=== PATIENT | male | born 1955 | race Caucasian/White ===

== ENCOUNTER → 2017-04-06 | Outpatient (CLI) | payer MEDICARE, OTHER ==
[2017-04-06 14:38] LABS: Basophils % (A) 1 %; CH 29.3; CHCM 32.8; Eosinophils # (A) 0.2 k/uL (0-0.7); Eosinophils % (A) 4 %; HCT 40.2 % (39.0-53.0); HDW 2.38; HGB 13.4 gm/dL (13.0-17.5); Luc # (Auto) 0.19; Luc % (Auto) 3; Lymphocytes # (A) 1.5 k/uL (1.0-4.8); Lymphocytes % (A) 27 %; MCHC 33.5 g/dL (31.0-37.0); MCV 89.7 fL (80.0-100.0); Mean Platelet Volume 7.7; Monocytes # (A) 0.5 k/uL (0-1.0); Monocytes % (A) 9 %; Neutrophils # (A) 3.1 k/uL (1.3-7.7); Neutrophils % (A) 56 %; RBC 4.48 m/uL (4.30-5.90); RDW 13.4 % (11.5-15.5); WBC 5.6 k/uL (3.8-10.6); WBC (Perox) 5.44
[2017-04-06 14:45] LABS: Appearance,Urine Clear (Clear); Bilirubin,Urine Negative (Negative); Glucose,Urine (UA) Negative (Negative); Ketones,Urine Negative (Negative); Leukocyte Esterase,Urine Negative (Negative); Nitrite,Urine Negative (Negative); PH, Urine 7.5 (5.0-8.0); Protein,Urine Negative (Negative); Specific Gravity,Urine 1.008 (1.001-1.035); UA Billing (MACRO vs. MICRO) CHEM; Urobilinogen,Urine <2.0 mg/dL (<2.0)
[2017-04-06 14:46] LABS: Anion Gap 11 mmol/L; Blood Urea Nitrogen 16 mg/dL (9-20); Calcium 9.7 mg/dL (8.4-10.2); Carbon Dioxide 30 mmol/L (22-30); Chloride 101 mmol/L (98-107); Glucose 91 mg/dL (74-99); Iron 96 ug/dL (49-181); Non-African American GFR(MDRD) >60 (>60 ml/min/1.73 sqM); Phosphorous 3.3 mg/dL (2.5-4.5); Potassium 4.7 mmol/L (3.5-5.1); Sodium 142 mmol/L (137-145); Uric Acid 6.8 mg/dL (3.5-8.5)
[2017-04-06 14:54] LABS: % Iron Saturation 25.7 % (20-50); Total Iron Binding Capacity 373 ug/dL (261-462)
== END | disposition home or self-care (01) ==
LOC: LABWHC1 14:01
PROVIDERS: ATTEND Internal Medicine Nephrology
DX: D64.9 Anemia, unspecified (principal); E55.9 Vitamin D deficiency, unspecified; Q61.2 Polycystic kidney, adult type; N39.0 Urinary tract infection, site not specified; M10.9 Gout, unspecified
CPT/HCPCS: 36415; 80048; 81003; 82306; 82728; 83540; 83550; 83735; 83970; 84100; 84550; 85025

== ENCOUNTER → 2017-10-14 | Outpatient (CLI) | payer MEDICARE, OTHER ==
[2017-10-14 17:43] LABS: Basophils % (A) 1 %; Eosinophils # (A) 0.2 k/uL (0-0.7); Eosinophils % (A) 3 %; HCT 40.6 % (39.0-53.0); HGB 13.1 gm/dL (13.0-17.5); Lymphocytes # (A) 1.5 k/uL (1.0-4.8); Lymphocytes % (A) 25 %; MCH 28.7 pg (25.0-35.0); MCHC 32.3 g/dL (31.0-37.0); MCV 88.8 fL (80.0-100.0); Mean Platelet Volume 8.4; Monocytes # (A) 0.5 k/uL (0-1.0); Monocytes % (A) 8 %; Neutrophils # (A) 3.6 k/uL (1.3-7.7); Neutrophils % (A) 61 %; Platelet Count 231 k/uL (150-450); RBC 4.57 m/uL (4.30-5.90); RDW 13.3 % (11.5-15.5); WBC 5.9 k/uL (3.8-10.6)
[2017-10-14 17:58] LABS: Anion Gap 11 mmol/L; Blood Urea Nitrogen 17 mg/dL (9-20); Calcium 9.9 mg/dL (8.4-10.2); Carbon Dioxide 30 mmol/L (22-30); Chloride 102 mmol/L (98-107); Glucose 93 mg/dL (74-99); Phosphorus 3.7 mg/dL (2.5-4.5); Potassium 4.1 mmol/L (3.5-5.1); Sodium 143 mmol/L (137-145); Uric Acid 5.7 mg/dL (3.5-8.5)
[2017-10-14 17:59] LABS: Appearance,Urine Clear (Clear); Bilirubin,Urine Negative (Negative); Blood,Urine Negative (Negative); Color,Urine Yellow; Glucose,Urine (UA) Negative (Negative); Ketones,Urine Negative (Negative); Leukocyte Esterase,Urine Small (Negative); Protein,Urine Negative (Negative); RBC,Urine 3 /hpf (0-5); Specific Gravity,Urine 1.017 (1.001-1.035); Squamous Epithelial Cell,Urine 1 /hpf (0-4); WBC,Urine 3 /hpf (0-5)
[2017-10-15 01:22] LABS: Iron Saturation 19.28 (15.00-50.00)
== END | disposition home or self-care (01) ==
LOC: LABWHC1 17:21
PROVIDERS: ATTEND Nurse Practitioner Family
DX: Q61.2 Polycystic kidney, adult type (principal); D64.9 Anemia, unspecified; M10.9 Gout, unspecified; N39.0 Urinary tract infection, site not specified; E55.9 Vitamin D deficiency, unspecified
CPT/HCPCS: 36415; 80048; 81001; 82306; 82728; 83540; 83550; 83735; 83970; 84100; 84550; 85025

== ENCOUNTER → 2017-11-03 | Outpatient (CLI) | payer MEDICARE, OTHER ==
--- NOTE | 2017-11-03 14:07 | US ---
EXAMINATION TYPE: US kidneys/renal and bladder DATE OF EXAM: 11/03/2017 COMPARISON: US 08/23/2015, CT 09/23/2017 CLINICAL HISTORY: Q61.2 Polycystic kidney, adult type. EXAM MEASUREMENTS: Right Kidney: 11.0 x 6.3 x 6.0 cm Left Kidney: 9.6 x 5.0 x 5.2 cm Right Kidney: Multiple cystic areas visualized, largest lower pole measuring 3.6 x 3.7 x 3.9 cm . T he largest on the prior exam of 2015 measured 3.5 x 3.2 x 2.4 cm. Left Kidney: Difficult visualization due to overlying bowel gas. Multiple cystic areas visualized, la rgest measuring 1.8 x 1.6 x 2.0 cm. The largest on the prior exam measured 3.3 x 2.3 x 2.6 cm. Bladder: wnl Bilateral Jets seen: Yes IMPRESSION: Redemonstration of multiple bilateral renal cysts appearing slightly larger on the right and slightly smaller on the left in comparison to exam of 2016. No evidence of hydronephrosis or nephrolithiasis.
== END | disposition home or self-care (01) ==
LOC: RADUSWWP 12:59
PROVIDERS: ATTEND Internal Medicine Nephrology
DX: Q61.2 Polycystic kidney, adult type (principal)
CPT/HCPCS: 76770

== ENCOUNTER → 2017-11-09 | Outpatient (CLI) | payer MEDICARE, OTHER ==
--- NOTE | 2017-11-09 14:09 | MR ---
EXAMINATION TYPE: MR angio head wo con DATE OF EXAM: 11/09/2017 COMPARISON: NONE HISTORY: Headaches, family hx of aneurysm TECHNIQUE: Time of flight images focusing on the [place] of [place] were performed without contrast. Th ree-dimensional post processing performed. FINDINGS: The vertebral arteries are patent. Right vertebral artery is dominant. There is no evident dissection or aneurysm. Internal carotid arteries are also patent. No vascular formation is seen. IMPRESSION: No evident aneurysm.
== END | disposition home or self-care (01) ==
LOC: RADMRIMAIN 12:50
PROVIDERS: ATTEND Nurse Practitioner Family
DX: R51 Headache (principal); Q61.2 Polycystic kidney, adult type; Z82.49 Family history of ischemic heart disease and other diseases of the circulatory system
CPT/HCPCS: 70544

== ENCOUNTER → 2018-01-24 | Outpatient (CLI) | payer MEDICARE, OTHER ==
--- NOTE | 2018-01-24 17:22 | US ---
EXAMINATION TYPE: US kidneys/renal and bladder DATE OF EXAM: 01/24/2018 COMPARISON: 11/03/2017 CLINICAL HISTORY: Q61.9 Cystic kidney disease. Bilateral flank pain x 3 weeks greater on right side, history of polycystic kidney disease EXAM MEASUREMENTS: Right Kidney: 12.0 x 5.9 x 5.6 cm Left Kidney: 11.5 x 5.7 x 4.8 cm Right Kidney: fullness of renal pelvis, multicystic with largest measuring 3.4 x 3.6 x 3.3cm inferior pole Left Kidney: limited by overlying bowel gas, multicystic, 2.8 x 2.5 x 2.3cm cystic area mid pole, pos sible hydro vs. cyst Bladder: wnl Bilateral Jets seen: yes IMPRESSION: Multiple bilateral renal cortical cysts. The largest on the right side measures 3.5 cm. Largest on th e left side measures 2.8 cm. There are bilateral ureteral jets in the urinary bladder. No hydronephro sis. No adverse change compared to old exam.
== END | disposition home or self-care (01) ==
LOC: RADUSMAIN 16:02
PROVIDERS: ATTEND Internal Medicine Nephrology
DX: N28.1 Cyst of kidney, acquired (principal); Z96.0 Presence of urogenital implants
CPT/HCPCS: 76770

== ENCOUNTER → 2019-06-06 | Outpatient (CLI) | payer MEDICARE, OTHER ==
--- NOTE | 2019-06-06 16:00 | BD ---
EXAMINATION TYPE: Axial Bone Density DATE OF EXAM: 06/06/2019 COMPARISON: NONE CLINICAL HISTORY: Z 13.820 Height: 69 IN Weight: 239 LBS FRAX RISK QUESTIONS: Secondary Osteoporosis: 5. Chronic liver disease: YES HEPATITIS C AGE 57 RISK FACTORS HISTORY OF: Surgery to Spine: YES FUSIONS IN L SPINE; T SPINE, AND C SPINE When: SINCE 2009 Family History of Osteoporosis: YES MOTHER, FATHER, Active: YES Diet low in dairy products/other sources of calcium: YES Lost more than 2 inches in height since high school: YES 4" Frequent falls: YES ONE OF HIS LEGS DRAG MEDICATIONS: Additional Medications: CALCIUM, MAGNESIUM, FLOMAX, ZOLOFT, LASIX, VASOTEC, POTASSIUM CITRATE, ASPIRI N, VIT D, NORVASC, AMLODPINE, ALBUTEROL, HCTZ, EXAM MEASUREMENTS: Bone mineral densitometry was performed using the [employer] System. PT HAD FUSIONS ON LUMBAR, THORACIC, AND CERVICAL PT HAS HAD BOTH KNEES REPLACED. PT CANNOT TURN TOES IN VERY WELL. Bone mineral density about the R hip (g/cm2): 0.886 Bone mineral density about the L hip (g/cm2): 0.950 T Score values are as follows: -----R Neck: -1.1 -----L Neck: -0.6 -----R Total: -1.8 -----L Total: -0.5 Bone mineral density BASELINE Bone mineral density about the L Wrist (g/cm2): 0.711 T Score values are as follows: -----Dist. R+U: -1.8 -----Prox. R+U: -0.3 -----Radius total: -0.6 Bone mineral density BASELINE IMPRESSION: Osteopenia (T Score between -2.5 and -1). There is slightly increased risk of fracture and the patient may be considered for treatment. Re-Screen 2-5 years. NOTE: T-SCORE=SD OF THE YOUNG ADULT MEAN.
== END ==
LOC: RADBDWWP 14:50
PROVIDERS: ATTEND Family Medicine
DX: M85.80 Other specified disorders of bone density and structure, unspecified site (principal)
CPT/HCPCS: 77080

== ENCOUNTER → 2019-08-30 | Outpatient (CLI) | payer MEDICARE, OTHER ==
--- NOTE | 2019-08-30 16:05 | XR ---
EXAMINATION TYPE: XR shoulder complete LT DATE OF EXAM: 08/30/2019 COMPARISON: NONE HISTORY: Pain TECHNIQUE: Shoulder examined in 3 views FINDINGS: The humeral head articulates with the glenoid. The acromio-clavicular junction is hypertrophied. No acute fractures or dislocations are evident. A follow up study can be performed 7-10 days from acute trauma for continued pain. IMPRESSION: 1. No acute osseous abnormality. 2. Acromioclavicular joint hypertrophy which can contribute to impingement syndrome.
== END | disposition home or self-care (01) ==
LOC: RAD 14:53
PROVIDERS: ATTEND Family Medicine
DX: M25.812 Other specified joint disorders, left shoulder (principal); M25.512 Pain in left shoulder

== ENCOUNTER → 2019-09-21 | Outpatient (CLI) | payer MEDICARE, OTHER ==
--- NOTE | 2019-09-21 12:11 | FL ---
Modified barium swallow EXAMINATION TYPE: FL barium swallow w video DATE OF EXAM: 09/21/2019 COMPARISON: NONE HISTORY: Dysphagia. The patient was evaluated in the lateral projection during real-time fluoroscopy, during ingestion of barium mixed with solids and liquids. No aspiration or laryngeal penetration. See report from [facility]. Impression: Consider dedicated barium swallow. Patient experienced tightness in the mid chest during eating. 47 seconds fluoroscopy time, no images obtained
== END | disposition home or self-care (01) ==
LOC: RADFLMAIN 11:13
PROVIDERS: ATTEND Family Medicine
DX: R13.19 Other dysphagia (principal)
CPT/HCPCS: 74230

== ENCOUNTER → 2019-10-05 | Outpatient (CLI) | payer MEDICARE, OTHER ==
--- NOTE | 2019-10-05 11:50 | FL ---
EXAMINATION TYPE: FL barium swallow DATE OF EXAM: 10/05/2019 COMPARISON: None HISTORY: Dysphasia, food sticking TECHNIQUE: A single contrast UGI study is performed. FINDINGS: Fluoroscopy time: 1 minute 21 seconds. Images: 18 Esophagus dilates to normal caliber has normal contour to the gastroesophageal junction. Gastroesopha geal junction opens to normal caliber. Presbyesophagus is present. Tertiary contractions were evident. A solitary secondary contraction was evident near the end of the examination. IMPRESSIONS: 1. Presbyesophagus. 2. No suspicious stenosis.
== END | disposition home or self-care (01) ==
LOC: RADFLMAIN 11:04
PROVIDERS: ATTEND Family Medicine
DX: K22.8 Other specified diseases of esophagus (principal)
CPT/HCPCS: 74220